=== PATIENT | female | born 1980 | race African-American/Black ===

== ENCOUNTER 2021-12-22 06:16 | Emergency (ER) | payer OTHER ==
[~2021-12-22] VITALS: Ht 165.1 cm; Wt 81.6 kg
[~2021-12-22 06:16] MED LIST: CEPH-570 PO; IBUP-1955 PO; NO MEDS
[2021-12-22 06:40] VITALS: BP 140/92
--- NOTE | 2021-12-22 06:40 | NUR ---
pt b/o blisters on rt fingers x 3days. PT A/Ox4. Tolerating R/A well with no SOB
[2021-12-22] MEDS ORDERED: KETOROLAC TROMETHAMINE INJ 30 MG/ML VIAL ONE (07:28)
[2021-12-22] MEDS ORDERED: CLIN300C12 PO (07:31)
[2021-12-22] MEDS ORDERED: IBUP-1957 PO (07:31)
[2021-12-22] MEDS: KETOROLAC TROMETHAMINE INJ 30 MG/ML VIAL IM ONE (07:32)
== END 2021-12-22 07:39 | disposition home or self-care (01) ==
LOC: ER 06:16
DX: R23.8 Other skin changes (principal); Z86.79 Personal history of other diseases of the circulatory system; Z79.1 Long term (current) use of non-steroidal anti-inflammatories (NSAID); Z79.899 Other long term (current) drug therapy
CPT/HCPCS: 96372; 99283; J1885